=== PATIENT | female | born 1990 | race Caucasian/White ===

== ENCOUNTER 2020-10-06 08:36 | Emergency (ER) | payer OTHER, SELFPAY ==
[~2020-10-06] VITALS: Ht 180.3 cm; Wt 62.2 kg
[2020-10-06 08:44] VITALS: BP 137/93
--- NOTE | 2020-10-06 09:05 | NUR ---
Intital contact with pt: Pt Believes she was exposed to poison oak 6 days ago. Finished course of 3 days of steroids. C/o rash over full body. pt to room with steady gait. attached to monitors. vss. rodriguez. postioned to comfort it bed
== END 2020-10-06 10:06 | disposition home or self-care (01) ==
LOC: EDBD → EDUNIT# 08:36 → ED 10:00
DX: Z02.9 Encounter for administrative examinations, unspecified (principal)